=== PATIENT | female | born 1975 | race Caucasian/White ===

== ENCOUNTER 2019-01-23 11:13 | Outpatient (CLI) | payer BC, SELFPAY ==
[2019-01-23] VITALS (10 sets, daily range): BP systolic 125–159; BP diastolic 81–107; PULSE 88–109; RESP 16–20; O2SAT 96–100
--- NOTE | 2019-01-23 11:16 | DI.RAD.S_ITS ---
PROCEDURE: PAIN L/S MED/LAT N RFA INDICATIONS: SPONDYLOSIS FINDINGS: Fluoroscopic spot filming was performed to verify placement of spinal needles at the L4, L5 and S1 level(s), as labeled on the films. Appropriate location(s) of the needle tip(s) was confirmed by injection of iodinated contrast. IMPRESSION: Fluoroscopy guidance for pain management. Dictated by: Mikael Harris M.D. on 01/23/2019 at 12:36 Approved by: Mikael Harrsi M.D. on 01/23/2019 at 12:37
[2019-01-23] MEDS: MIDAZOLAM 5 MG/5 ML VIAL IV (11:40)
[2019-01-23] MEDS: fentaNYL 100 MCG/2 ML INJ 50 MCG IV (11:40)
[2019-01-23] MEDS: LIDOCAINE 1% 20 ML INJ 10 ML INJ (11:45)
[2019-01-23] MEDS: BUPIVACAINE 0.5% (PF) VIAL 2 ML INJ (11:45)
[2019-01-23] MEDS: BETAMETHASONE 30 MG/5 ML MDV 12 MG INJ (11:45)
--- NOTE | 2019-01-23 12:17 | PC.NURSE ---
Pt tolerated procedure. Standby assist to get off table and into wheelchair. Transferred pt to pre procedure room via wheelchair awake and alert for continued monitoring with Leyla CASTRO.
--- NOTE | 2019-01-23 12:30 | P.PCN_ITS ---
Procedures Date/Time Date of procedure: 01/23/19 Time of procedure: 12:29 General Procedure description: PREOP DIAGNOSIS 1. RECALCITRANT FACET ARTHROPATHY, POST OP DIAGNOSIS 1. RECALCITRANT FACET ARTHROPATHY, PROCEDURES 1. RIGHT L4 AND L5 MEDIAL BRANCH RADIOFREQUENCY NEUROTOMY AND RIGHT S1 DORSAL RAMUS BRANCH RADIOFREQUENCY NEUROTOMY, SURGEON: Brenden Tejada, DO INDICATIONS Lola is referred by Dr. Mason for treatment of facet arthropathy. DESCRIPTION OF PROCEDURE Right L4 and L5 medial branch radiofrequency neurotomy and right S1 dorsal ramus branch radiofrequency neurotomy under fluoroscopy with conscious sedation. The patient is well known to this clinic having undergone previous facet injections with good but temporary relief. The patient has experienced appropriate, concordant relief with previous facet and median branch blocks but the patient's pain has been recalcitrant to further conservative measures. Therefore, based upon the patient's relief and persistent symptoms, the patient is considered an appropriate candidate for facet rhizotomy. All of the patient's questions regarding the risks versus benefits of the procedure, including, but not limited to, bleeding, infection, temporary as well as lasting nerve injury, paralysis, stroke, and , as well treatment alternatives were answered to satisfaction. After review of previous anaesthesic history and IV conscious sedation the patient was deemed safe to proceed with todays procedure with IV conscious sedation as ASA class II designation. Safety time-out was performed to confirm patient ID, procedure to be performed and site of procedure. IV sedation was accomplished with a combination of 3mg of Versed and 50mcg of Fentanyl was administered by the RN after DO order, titrated to patient comfort during the course of the procedure while the patient remained responsive to all verbal commands. After obtaining informed consent, denial of pertinent drug allergies, as well as being made aware of the potential risks of bleeding, infection, spinal cord trauma, paralysis, temporary and permanent nerve damage, seizure, stroke, and possible , the patient was brought to the fluoroscopy suite and positioned prone on the fluoroscopy table. The lumbar region was prepped with Betadine and covered with a fenestrated drape in the usual sterile fashion. Appropriate monitors applied including pulse oximeter, pulse, and blood pressure for regular monitoring throughout the procedure. After local infiltration using 1% lidocaine, under fluoroscopic guidance, a 10- cm RF insulated needle with a 10-mm active tip was positioned parallel to the junction of the right sacral ala and the superior articulating process where the S1 dorsal ramus resides. Needle placement was confirmed with sensory stimulation at 50 Hz, with motor stimulation of .5v on the right which produced local stimulation without radicular component. The stimulation was then increased to 1.5v with, once again, only local multifidus stimulation without radicular component. This was then followed by two discreet lesions performed at 80 degrees Celsius for 90 seconds each. The needle was then removed and the identical procedure was performed along the length of the right L5 medial branch with motor stimulation at .7v on the right. The identical procedure was once again performed along the length of the right L4 medial branch with motor stimulation of .5v on the right. The patient tolerated the procedure well without signs or symptoms of complications prior to transfer to the recovery area continued monitoring without incident. The patient was then transferred to the recovery area where they were observed for an appropriate period of time after the injection. The patient was then transferred to the recovery area where they were observed for an appropriate period of time after the injection. The patient reported a VAS score of 9 prior to the procedure and a post- procedure VAS of 0. Total Fluoroscopy Time: 31 seconds Total Conscious Sedation Time: 45min POST OP INSTRUCTIONS The patient was provided a Pain Log to continue to record the patient's response to the target-specific procedure prior to the patient's follow-up visit with the referring physician. Additionally, specific post-injection care instructions and a contact number to our office were provided if concerns arise regarding possible complications associated with the procedure are suspected. Brenden Tejada DO Complications: none
== END 2019-01-23 12:50 | disposition home or self-care (01) ==
LOC: RAD 11:15
PROVIDERS: PCP Naturopath; Visit Provider Physical Medicine & Rehabilitation
DX: M47.816 Spondylosis without myelopathy or radiculopathy, lumbar region (principal); M47.817 Spondylosis without myelopathy or radiculopathy, lumbosacral region
CPT/HCPCS: 64635; 64636; 99152; J0702; J2250; J3010

== ENCOUNTER → 2023-04-12 08:37 | Outpatient (CLI) | payer OTHER, SELFPAY ==
--- NOTE | 2023-04-12 08:38 | DI.RAD.S_ITS ---
PROCEDURE: XR LUMBAR SPINE MIN 4V INDICATIONS: BACK PAIN TECHNIQUE: 5 views of the lumbar spine were acquired, including bilateral oblique views. COMPARISON: None. FINDINGS: Bones: 5 nonrib-bearing vertebrae are present. No listhesis. No vertebral body compression fractures. No suspicious bony lesions. Slight rightward curvature of the lumbar spine. Moderate disc height loss at L5-S1 Soft tissues: Overlying bowel gas pattern is normal. No suspicious soft tissue calcifications. Oblique images: No pars defects. IMPRESSION: Moderate disc height loss at L5-S1. Dictated by: Joni Castle M.D. on 04/12/2023 at 9:18 Approved by: Joni Castle M.D. on 04/12/2023 at 9:19
== END ==
PROVIDERS: PCP Naturopath; Referring Provider Physical Medicine & Rehabilitation; Visit Provider Physical Medicine & Rehabilitation
DX: M47.27 Other spondylosis with radiculopathy, lumbosacral region (principal); M51.26 Other intervertebral disc displacement, lumbar region
CPT/HCPCS: 72110

== ENCOUNTER 2023-05-30 07:42 | Outpatient (CLI) | payer OTHER, SELFPAY ==
--- NOTE | 2023-05-30 07:44 | DI.RAD.S_ITS ---
PROCEDURE: PAIN L/S TRANSFORAMINAL INJECT INDICATIONS: SPONDYLOSIS COMPARISON: Outside Facility, [facility], MRI L-SPINE W/O CONTRAST, 05/02/2023, 7:16. FINDINGS: Fluoroscopic spot filming was performed to verify placement of a spinal needle at the L4-L5 level, as labeled on the films. Appropriate location of the needle tip was confirmed by injection of iodinated contrast. IMPRESSION: Intraprocedural examination within normal limits. Dictated by: Michael Stephens M.D. on 05/30/2023 at 10:50 Approved by: Michael Stephens M.D. on 05/30/2023 at 10:51
[2023-05-30 07:50] VITALS: BP 171/78; PULSE 74; RESP 20; TEMP 36.3; O2SAT 99
--- NOTE | 2023-05-30 08:38 | PC.NURSE ---
Patient declined IV and sedation for procedure. After discussing her history and allergy to contrast media she was agreeable to an IV for safety. Christina CASTRO inserted IV without difficulty.
[2023-05-30] MEDS: diphenhydrAMINE 50 MG/ML VIAL 25 MG IV (08:40)
[2023-05-30 08:49] VITALS: BP 149/87; PULSE 64; RESP 16; O2SAT 100
[2023-05-30] MEDS: IOPAMIDOL 15 ML VIAL 3 ML INJ (08:50)
[2023-05-30] MEDS: DEXAMETHASONE 10 MG/ML VIAL 20 MG INJ (08:50)
[2023-05-30] MEDS: BUPIVACAINE 0.25% (PF) VIAL 2 ML INJ (08:50)
[2023-05-30] MEDS: BETAMETHASONE 30 MG/5 ML MDV 6 MG INJ (08:51)
[2023-05-30 08:54] VITALS: BP 129/75; PULSE 57; RESP 15; O2SAT 100
[2023-05-30 09:00] VITALS: BP 131/67; PULSE 65; RESP 18; O2SAT 100
--- NOTE | 2023-05-30 09:00 | P.PCN_ITS ---
Date/Time/Diagnoses Date of procedure: 05/30/23 Time of procedure: 09:00 Pre-procedure diagnosis: 1. FORAMINAL STENOSIS WITH LE SYMPTOMS Post-procedure diagnosis: same Procedure Notes Procedure: 1. FLUOROSCOPICALLY GUIDED CONTRAST CONTROLLED TRANSFORAMINAL EPIDURAL STEROID INJECTION - LEFT L4/5 Indications: Lola is referred by Dr. Cabrera for treatment of Foraminal Stenosis with Left LE Symptoms Physician: Brenden Tejada Total Fluoroscopy time (seconds): 11 Total sedation minutes: 7 Complications: none Procedure in detail & Post-procedure care: FINDINGS Foraminal Nerve Root Compression secondary to disc disease and facet hypertrophy DESCRIPTION OF PROCEDURE Following review of allergy and review of potential side effects and complications, including, but not necessarily limited to, infection, allergic reaction, local tissue breakdown, stroke, temporary or permanent nerve injury, paralysis, and possible , the patient indicated that the patient understood and agreed to proceed. An informed consent document was signed by the patient, witnessed by a nurse, and placed in the patient's chart. Additionally, other treatment options including medications, modalities, and physical therapy were reviewed with the patient. After review of previous anaesthesic history and IV conscious sedation the patient was deemed safe to proceed with today?s procedure with IV conscious sedation as ASA class II designation. Safety time-out was performed to confirm patient ID, procedure to be performed and site of procedure. IV sedation was deemed unnecessary but with her history of possible contrast allergy 25mg of Benadryl was administered by the RN after DO order during the course of the procedure while the patient remained responsive to all verbal commands In the prone position following sterile prep and drape of the lumbar region, the left L4/5 posterior neuroforamen was identified fluoroscopically. The skin was anesthetized via a 25-gauge 1.5-inch needle with 1% lidocaine solution. At this point, a 25-gauge 3.5-inch spinal needle was atraumatically introduced and advanced under fluoroscopic guidance through the posterior left L4/5 neuroforamen to approximately the anterior aspect of the canal. Depth was confirmed on lateral view. Following negative aspiration, injection of approximately 1.5 cc of Isovue 200 under live fluoroscopy in the AP view confir med excellent flow along the nerve root, into the epidural space without vascular or intrathecal uptake observed Radiological data, including multiple fluoroscopic views of the lumbosacral spine, reveal a spinal needle at the left L4/5 posterior neuroforamen. Subsequent views show flow of contrast material flowing superiorly and inferiorly along the nerve root confirming epidural flow. Subsequently, a test dose of 1.5 cc of 1% lidocaine solution was administered and patient was observed for two minutes for signs or symptoms of complications, including abdominal pain, shortness of breath, bilateral upper or lower extremity weakness, nausea and vomiting, prior to steroid injection. At this point, a total of 3cc or 20mg of dexamethasone and 6mg of betamethasone was injected without incident. The procedure tolerated the procedure well without signs or symptoms of complications prior to transfer to the recovery area continued monitoring without incident. The patient was then transferred to the recovery area where they were observed for an appropriate time after the injection. The patient reported a VAS score of 7 prior to the procedure and a post- procedure VAS of 0. POST OP INSTRUCTIONS The patient was provided a Pain Log to continue to record their response to the target-specific procedure prior to follow-up visit with their referring phy sician. Additionally, specific post-injection care instructions and a contact number to our office were provided if concerns arise regarding possible complications associated with the procedure are suspected.
[2023-05-30 09:05] VITALS: BP 130/77; PULSE 79; RESP 20; O2SAT 100
== END 2023-05-30 09:09 | disposition home or self-care (01) ==
PROVIDERS: PCP Registered Nurse; Referring Provider Physical Medicine & Rehabilitation; Visit Provider Physical Medicine & Rehabilitation
DX: M48.061 Spinal stenosis, lumbar region without neurogenic claudication (principal); M51.16 Intervertebral disc disorders with radiculopathy, lumbar region; M47.26 Other spondylosis with radiculopathy, lumbar region
CPT/HCPCS: 64483; J0702; J1100; J1200; J2250; J3490

== ENCOUNTER 2023-10-26 13:17 | Outpatient (CLI) | payer OTHER, SELFPAY ==
[2023-10-26] VITALS (9 sets, daily range): BP systolic 130–163; BP diastolic 80–100; PULSE 73–89; RESP 12–20; TEMP 36.2; O2SAT 97–100
--- NOTE | 2023-10-26 14:00 | DI.RAD.S_ITS ---
PROCEDURE: PAIN L/S TRANSFORAMINAL INJECT INDICATIONS: SPONDYLOSIS COMPARISON: [facility], , PAIN L/S TRANSFORAMINAL INJECT, 05/30/2023, 8:49. FINDINGS: Fluoroscopic spot filming was performed to verify placement of spinal needles at the left L4-5 level(s), as labeled on the films. Appropriate location(s) of the needle tip(s) was confirmed by injection of iodinated contrast. IMPRESSION: Intra procedural examination demonstrating appropriate positions of the needles. Dictated by: Alverto Lew M.D. on 10/26/2023 at 15:48 Approved by: Alverto Lew M.D. on 10/26/2023 at 15:51
[2023-10-26] MEDS: diphenhydrAMINE 50 MG/ML VIAL 25 MG IV (14:26)
[2023-10-26] MEDS: MIDAZOLAM 2 MG/2 ML VIAL 1 MG IV ×2 (14:30→14:36)
[2023-10-26] MEDS: DEXAMETHASONE 10 MG/ML VIAL INJ (14:32)
[2023-10-26] MEDS: iopamidoL 15 ML VIAL 3 ML INJ (14:32)
[2023-10-26] MEDS: BUPIVACAINE 0.25% (PF) VIAL 2 ML INJ (14:32)
[2023-10-26] MEDS: BETAMETHASONE 30 MG/5 ML MDV 6 MG INJ (14:33)
--- NOTE | 2023-10-26 14:44 | P.PCN_ITS ---
Date/Time/Diagnoses Date of procedure: 10/26/23 Time of procedure: 14:44 Pre-procedure diagnosis: 1. FORAMINAL STENOSIS WITH LE SYMPTOMS Post-procedure diagnosis: same Procedure Notes Procedure: 1. FLUOROSCOPICALLY GUIDED CONTRAST CONTROLLED TRANSFORAMINAL EPIDURAL STEROID INJECTION - LEFT L4/5 Indications: Lola is referred by ANNA Cabrera for treatment of Foraminal Stenosis with Left LE Symptoms Physician: Brenden Tejada Total Fluoroscopy time (seconds): 10 Total sedation minutes: 10 Complications: none Procedure in detail & Post-procedure care: FINDINGS Foraminal Nerve Root Compression secondary to disc disease and facet hypertrophy DESCRIPTION OF PROCEDURE Following review of allergy and review of potential side effects and complications, including, but not necessarily limited to, infection, allergic reaction, local tissue breakdown, stroke, temporary or permanent nerve injury, paralysis, and possible , the patient indicated that the patient understood and agreed to proceed. An informed consent document was signed by the patient, witnessed by a nurse, and placed in the patient's chart. Additionally, other treatment options including medications, modalities, and physical therapy were reviewed with the patient. After review of previous anaesthesic history and IV conscious sedation the patient was deemed safe to proceed with today?s procedure with IV conscious sedation as ASA class II designation. Safety time-out was performed to confirm patient ID, procedure to be performed and site of procedure. IV sedation was accomplished with a combination of 2mg of Versed and 25mg of Benadrl was administered by the RN after DO order, titrated to patient comfort during the course of the procedure while the patient remained responsive to all verbal commands In the prone position following sterile prep and drape of the lumbar region, the left L4/5 posterior neuroforamen was identified fluoroscopically. The skin was anesthetized via a 25-gauge 1.5-inch needle with 1% lidocaine solution. At this point, a 25-gauge 3.5-inch spinal needle was atraumatically introduced and advanced under fluoroscopic guidance through the posterior left L4/5 neuroforamen to approximately the anterior aspect of the canal. Depth was confirmed on lateral view. Following negative aspiration, injection of approximately 1.5 cc of Isovue 200 under live fluoroscopy in the AP view confirmed excellent flow along the nerve root, into the epidural space without vascular or intrathecal uptake observed Radiological data, including multiple fluoroscopic views of the lumbosacral spine, reveal a spinal needle at the left L4/5 posterior neuroforamen. Subsequent views show flow of contrast material flowing superiorly and inferiorly along the nerve root confirming epidural flow. Subsequently, a test dose of 1.5 cc of 1% lidocaine solution was administered and patient was observed for two minutes for signs or symptoms of complications, including abdominal pain, shortness of breath, bilateral upper or lower extremity weakness, nausea and vomiting, prior to steroid injection. At this point, a total of 2cc or 10mg of dexamethasone and 6mg of betamethasone was injected without incident. The procedure tolerated the procedure well without signs or symptoms of complications prior to transfer to the recovery area continued monitoring without incident. The patient was then transferred to the recovery area where they were observed for an appropriate time after the injection. The patient reported a VAS score of 7 prior to the procedure and a post- procedure VAS of 0. POST OP INSTRUCTIONS The patient was provided a Pain Log to continue to record their response to the target-specific procedure prior to follow-up visit with their referring physician. Additionally, specific post-injection care instructions and a contact number to our office were provided if concerns arise regarding possible complications associated with the procedure are suspected.
== END 2023-10-26 15:06 | disposition home or self-care (01) ==
LOC: RAD 13:18
PROVIDERS: PCP Registered Nurse; Referring Provider Physical Medicine & Rehabilitation; Visit Provider Physical Medicine & Rehabilitation
DX: M48.061 Spinal stenosis, lumbar region without neurogenic claudication (principal); M51.16 Intervertebral disc disorders with radiculopathy, lumbar region; M47.26 Other spondylosis with radiculopathy, lumbar region
CPT/HCPCS: 64483; 99152; J0702; J1100; J1200; J2250; J3490

== ENCOUNTER 2024-01-01 13:20 | Emergency (ER) | payer OTHER, SELFPAY ==
[2024-01-01 13:30] VITALS: BP 185/102; PULSE 87; RESP 18; TEMP 36.4; O2SAT 96; BMI 35.5
--- NOTE | 2024-01-01 13:34 | DI.RAD.S_ITS ---
PROCEDURE: XR SHOULDER LT MIN 2V INDICATIONS: pain, decreased ROM TECHNIQUE: To views of the shoulder were acquired. COMPARISON: None. FINDINGS: Bones: No fractures or dislocations. No suspicious bony lesions. Visualized ribs appear intact. Soft tissues: Calcification of the rotator cuff. IMPRESSION: 1. Calcific tendinitis of the rotator cuff. 2. No acute fracture. No osseous lesion. If symptoms and/or clinical suspicion for pathology persist, further assessment with repeat, or advanced imaging (e.g., CT, MRI, or bone scan) may be helpful for further assessment. Dictated by: Alison Gilliland M.D. on 01/01/2024 at 14:52 Approved by: Alison Gilliland M.D. on 01/01/2024 at 14:53
[2024-01-01] MEDS: ACETAMINOPHEN 325 MG TABLET 975 MG PO (14:43)
[2024-01-01] MEDS: KETOROLAC 30 MG/ML VIAL IM (14:43)
--- NOTE | 2024-01-01 15:24 | ED.GENADULT ---
HPI - General Adult <Ryley Greene PA-C - Last Filed: 01/01/24 15:29> General Chief complaint: Extremity Injury, Upper Stated complaint: L shoulder pain Time Seen by Provider: 01/01/24 13:38 Source: patient Mode of arrival: Ambulatory History of Present Illness HPI narrative: 48-year-old female presents to the ED with 3 days of acute left-sided shoulder pain. Patient denies any trauma. Patient denies any recent overuse. Patient states that she has been noticing some twinges in the left shoulder over the past week. Pain got much worse 3 days ago the point where patient is unable to lift her left arm up. Patient is holding her arm in adduction close to her body. Denies numbness, tingling, weakness. No prior shoulder injuries. Related Data Home Medications Medication Instructions Recorded Confirmed ipratropium bromide [Atrovent] inhalation BID 03/15/19 09/22/23 celecoxib 200 mg capsule 200 mg PO DAILY 01/25/23 09/22/23 ciclesonide 160 mcg/actuation 1 inh inhalation 01/25/23 09/22/23 aerosol inhaler (Alvesco) estradiol 1 mg tablet 1 mg PO DAILY 01/25/23 09/22/23 losartan 25 mg tablet 25 mg PO DAILY 01/25/23 09/22/23 montelukast 10 mg tablet 10 mg PO BEDTIME 01/25/23 09/22/23 omeprazole 20 mg capsule,delayed 20 mg PO DAILY 01/25/23 09/22/23 release oxcarbazepine 150 mg tablet 150 mg PO DAILY 01/25/23 09/22/23 oxcarbazepine 300 mg tablet 300 mg PO DAILY 01/25/23 09/22/23 rimegepant 75 mg disintegrating 75 mg PO 01/25/23 09/22/23 tablet (Nurtec ODT) rizatriptan 10 mg disintegrating mg PO 09/22/23 09/22/23 tablet Previous Rx's Medication Instructions Recorded diazepam 10 mg tablet (Valium) 10 mg PO .COMPLEX PRN 1-2 prior to 09/22/23 MRI and for possible steroid flare #10 tabs methylprednisolone 4 mg tablets in See Rx Instructions PO PER PKG DIR 09/22/23 a dose pack (Medrol (David)) radiculopathy #21 ea Allergies Allergy/AdvReac Type Severity Reaction Status Date / Time transparent dressing Allergy Unknown Verified 01/01/24 13:34 [TRANSPARENT DRESSING] clarithromycin AdvReac Mild Vomiting Verified 01/01/24 13:34 Iodinated Contrast Media AdvReac Mild Anaphylaxis Verified 01/01/24 13:34 Review of Systems <Ryley Greene PA-C - Last Filed: 01/01/24 15:29> Constitutional Constitutional: Denies chills, Denies fatigue, Denies fever(s), Denies frequent falls, Denies lethargy and Denies weakness Eyes Eyes: Denies change in vision, Denies eye discharge, Denies irritation and Denies loss of vision ENT Ears, Nose, Mouth, and Throat: Denies change in voice, Denies dizziness, Denies neck pain, Denies sore throat and Denies throat swelling Cardiovascular Cardiovascular: Denies chest pain, Denies irregular heart rhythm, Denies lightheadedness, Denies palpitations, Denies dyspnea, Denies dyspnea on exertion and Denies orthopnea Respiratory Respiratory: Denies cough, Denies dyspnea, Denies dyspnea on exertion and Denies wheezing Gastrointestinal Gastrointestinal: Denies abdominal pain, Denies change in bowel habits, Denies diarrhea, Denies nausea and Denies vomiting Musculoskeletal Musculoskeletal: Denies neck pain and Denies numbness Comments: Left shoulder pain Integumentary/Breasts Skin/Breast: Denies pruritus, Denies erythema, Denies rash and Denies wounds Neurologic Neurologic: Denies behavioral changes, Denies confusion, Denies dizziness, Denies frequent falls, Denies loss of vision, Denies numbness and Denies weakness Psychiatric Psychiatric: Denies anxiety, Denies behavioral changes, Denies confusion, Denies depression, Denies homicidal ideation and Denies suicidal ideation Endocrine Endocrine: Denies fatigue, Denies flushing and Denies palpitations Hematologic/Lymphatic Hematologic/Lymphatic: Denies easy bruising Allergic/Immunologic Allergic/Immunologic: Denies urticaria, Denies throat swelling and Denies wheezing Patient History <Ryley Greene PA-C - Last Filed: 01/01/24 15:29> Medical History PCOS (polycystic ovarian syndrome) Herniated nucleus pulposus, L4-5 Family History Father COPD (chronic obstructive pulmonary disease) Heart disease Mother Hypertension Social History Smoking Status: Never smoker Smoking Status: Never smoker Substance Use Type: does not use Exam <Ryley Greene PA-C - Last Filed: 01/01/24 15:29> Narrative Exam Narrative: Const General:?cooperative, healthy appearing and comfortable HENMT Head:?normal to inspection Ears:?hearing grossly normal bilaterally Nose:?external nose normal Face and sinus:?normal facial exam and sinuses nontender Mouth:?oral mucosae normal Throat:?posterior oropharynx normal Eyes General:?appearance normal, both eyes and all related structures Neck Neck:?normal visual inspection and no lymphadenopathy noted Resp Effort & Inspection:?normal respiratory effort Auscultation:?clear to auscultation bilaterally Cardio Rate:?regular rate Rhythm:?regular rhythm Musculoskeletal There is some tenderness to palpation at the tip of the left shoulder. Patient is holding her arm in adduction. Range of motion limited by pain. Strength and sensation is intact. Patient is neurovascularly intact. No erythema, bruising, swelling. Neuro General:?patient alert, patient awake and patient oriented x3 Initial Vital Signs Initial Vital Signs: Vital Signs Temperature 97.5 F L 01/01/24 13:30 Pulse Rate 87 01/01/24 13:30 Respiratory Rate 18 01/01/24 13:30 Blood Pressure 185/102 H 01/01/24 13:30 Pulse Oximetry 96 01/01/24 13:30 Oxygen Delivery Method Room Air 01/01/24 13:30 <Loida Moseley MD - Last Filed: 01/02/24 07:29> Initial Vital Signs Initial Vital Signs: Vital Signs Temperature 97.5 F L 01/01/24 13:30 Pulse Rate 87 01/01/24 13:30 Respiratory Rate 18 01/01/24 13:30 Blood Pressure 185/102 H 01/01/24 13:30 Pulse Oximetry 96 01/01/24 13:30 Oxygen Delivery Method Room Air 01/01/24 13:30 Course <Ryley Greene PA-C - Last Filed: 01/01/24 15:29> Orders Ordered: Discontinued Medications Acetaminophen (Acetaminophen 325 Mg Tablet) 975 mg PO NOW ONE Stop: 01/01/24 14:36 Last Admin: 01/01/24 14:43 Dose: 975 mg Documented By: GENNA Ketorolac Tromethamine (Ketorolac 30 Mg/Ml Vial) 30 mg IM NOW ONE Stop: 01/01/24 14:36 Last Admin: 01/01/24 14:43 Dose: 30 mg Documented By: GENNA Vital Signs Vital signs: Vital Signs - 8 hr 01/01/24 13:30 Temperature 97.5 F L Pulse Rate 87 Respiratory Rate 18 Blood Pressure 185/102 H Pulse Oximetry 96 Oxygen Delivery Method Room Air <Loida Moseley MD - Last Filed: 01/02/24 07:29> Orders Ordered: Discontinued Medications Acetaminophen (Acetaminophen 325 Mg Tablet) 975 mg PO NOW ONE Stop: 01/01/24 14:36 Last Admin: 01/01/24 14:43 Dose: 975 mg Documented By: GENNA Ketorolac Tromethamine (Ketorolac 30 Mg/Ml Vial) 30 mg IM NOW ONE Stop: 01/01/24 14:36 Last Admin: 01/01/24 14:43 Dose: 30 mg Documented By: RL Vital Signs Vital signs: Vital Signs - 8 hr 01/01/24 13:30 Temperature 97.5 F L Pulse Rate 87 Respiratory Rate 18 Blood Pressure 185/102 H Pulse Oximetry 96 Oxygen Delivery Method Room Air Medical Decision Making <Ryley Greene PA-C - Last Filed: 01/01/24 15:29> MDM Narrative Medical decision making narrative: 48-year-old female presents to the ED with 3 days of acute left-sided shoulder pain. Concern for fracture/dislocation versus rotator cuff injuries versus calcific tendinitis versus other musculoskeletal sprain/strain versus other. Obtained shoulder x-ray which shows calcific tendinitis and no other acute findings. Patient was given a dose of Toradol and Tylenol in the ED. recommend continuing ibuprofen and Tylenol as well as lidocaine patches. Patient was able to obtain a appointment with her PCP later today. ED return precautions discussed with patient. Patient verbalized understanding. Medical records reviewed: Yes Discharge Plan Departure Patient Disposition: Home Clinical Impression: Calcific tendinitis Instructions: DI for Calcific Tendonitis of the Shoulder Activity Restrictions/Additional Instructions: You were evaluated in the ED today for left-sided shoulder pain. Your x-ray did not show any fractures or dislocations, however did show some calcific tendinitis which is consistent with your symptoms. You were given an injection of Toradol and some Tylenol for the pain. Please continue taking the Tylenol and ibuprofen at home. You may take 1000 mg of Tylenol and 800 mg of ibuprofen every 8 hours with food for pain relief. Please follow-up with your PCP as soon as possible for further evaluation and referrals. Return to the ED if you have worsening symptoms, numbness, tingling, weakness. Prescriptions: No Action ipratropium bromide INHALATION BID Alvesco 160 mcg/actuation HFA aerosol inhaler 1 inh inhalation omeprazole 20 mg capsule,delayed release(DR/EC) 20 mg PO DAILY losartan 25 mg tablet 25 mg PO DAILY oxcarbazepine 300 mg tablet 300 mg PO DAILY oxcarbazepine 150 mg tablet 150 mg PO DAILY montelukast 10 mg tablet 10 mg PO BEDTIME estradiol 1 mg tablet 1 mg PO DAILY celecoxib 200 mg capsule 200 mg PO DAILY Nurtec ODT 75 mg tablet,disintegrating 75 mg PO rizatriptan 10 mg tablet,disintegrating PO methylprednisolone [Medrol (David)] 4 mg tablets,dose pack See Rx Instructions PO PER PKG DIR Qty: 21 0RF Rx Instructions: PO PER PKG DIR diazepam [Valium] 10 mg tablet 10 mg PO .COMPLEX MDD 3 tabs PRN (Reason: 1-2 prior to MRI and for possible steroid flare) Qty: 10 0RF Rx Instructions: 10 mg PO PRN; Referrals: Archie Cabrera ARNP [Primary Care Provider] - Stand Alone Forms: Patient Portal/API ED Sign-out <Loida Moseley MD - Last Filed: 01/02/24 07:29> Cosign ED Attending Abby Attestation: I was immediately available in the department for consultation throughout this patient's visit. Loida Moseley MD
== END 2024-01-01 15:25 | disposition home or self-care (01) ==
PROVIDERS: Emergency Provider Student in an Organized Health Care Education/Training Program; PCP Registered Nurse
DX: M75.32 Calcific tendinitis of left shoulder (principal)
CPT/HCPCS: 73030; 96372; 99283; 99284; J1885